=== PATIENT | female | born 1960 | race Caucasian/White ===

== ENCOUNTER → 2018-09-16 | Outpatient (CLI) | payer BC ==
[~2018-09-16] MED LIST: CIPRO 500MG TA500 MG PO; LORTAB 5/500 501 TAB PO; METRONIDAZOLE500 MG PO; MVI; PREMARIN0.625 MG PO; WELLBUTRIN PO; ZOFRAN 4MG T4 MG/TAB PO
== END ==
LOC: MC.RAD 14:20
DX: Z12.31 Encounter for screening mammogram for malignant neoplasm of breast (principal)

== ENCOUNTER → 2019-10-07 | Outpatient (CLI) | payer BC | LOC: MC.RAD 12:58 | DX: Z12.31 Encounter for screening mammogram for malignant neoplasm of breast (principal) ==

== ENCOUNTER → 2020-10-09 | Outpatient (CLI) | payer BC ==
[~2020-10-09] MED LIST changes: +ATARAX 25MG25 MG/TAB PO; +PREDNISONE20 MG PO
== END ==
LOC: MC.RAD 09:15
DX: Z12.31 Encounter for screening mammogram for malignant neoplasm of breast (principal); N64.89 Other specified disorders of breast

== ENCOUNTER → 2020-10-16 | Outpatient (CLI) | payer BC | LOC: MC.RAD 08:00 | DX: N64.89 Other specified disorders of breast (principal) ==

== ENCOUNTER 2020-11-26 01:20 | Emergency (ER) | payer BC ==
[~2020-11-26] VITALS: Ht 162.6 cm; Wt 59.1 kg
[~2020-11-26 01:20] MED LIST changes: -ATARAX 25MG25 MG/TAB PO; -PREDNISONE20 MG PO
[2020-11-26 01:24] VITALS: BP 122/72
[2020-11-26] MEDS ORDERED: ATARAX 25MG25 MG/TAB PO (02:18)
[2020-11-26] MEDS ORDERED: PREDNISONE20 MG PO (02:18)
[2020-11-26 02:28] VITALS: PULSE 67
== END 2020-11-26 02:28 | disposition home or self-care (01) ==
LOC: COL.ER 01:20
DX: L50.0 Allergic urticaria (principal); F32.9 Major depressive disorder, single episode, unspecified; Z88.1 Allergy status to other antibiotic agents
CPT/HCPCS: J7512

== ENCOUNTER → 2021-10-19 | Outpatient (CLI) | payer BC ==
[~2021-10-19] MED LIST changes: +ATARAX 25MG25 MG/TAB PO; +PREDNISONE20 MG PO
== END ==
LOC: MC.RAD 09:08
DX: Z12.31 Encounter for screening mammogram for malignant neoplasm of breast (principal)